=== PATIENT | female | born 1945 | race Two or more races ===

== ENCOUNTER 2023-10-15 09:06 | Outpatient (REF) | payer OTHER, SELFPAY ==
--- NOTE | ~2023-10-15 | XR_ITS ---
EXAMINATION: XR SHOULDER, LEFT CLINICAL INFORMATION: Pain in left shoulder. COMPARISON: None available. TECHNIQUE: Two views of the left shoulder. FINDINGS: The bones are diffusely demineralized. Moderate degenerative changes in the acromioclavicular joint. Glenohumeral joint is difficult to evaluate due to positioning and overlying bony structures. No abnormal soft tissue calcification is appreciated adjacent to the humeral head on images provided. XR/XR shoulder LT min 2V IMPRESSION: 1. Moderate degenerative changes in the acromioclavicular joint. 2. Glenohumeral joint is difficult to evaluate due to positioning and overlying bony structures. 3. Additional imaging with CT scan or MRI should be considered for better visualization as these modalities are much more sensitive for detection of fracture or other underlying pathology..
== END 2023-10-15 09:07 | disposition home or self-care (01) ==
LOC: HO.HOSX 09:06
PROVIDERS: Visit Provider Orthopaedic Surgery
DX: M25.512 Pain in left shoulder (principal)
CPT/HCPCS: 73030; 99202

== ENCOUNTER 2023-10-15 10:01 | Outpatient (AMB) | payer OTHER, SELFPAY ==
--- NOTE | 2023-10-15 10:07 | A.OFFVIS_ITS ---
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 Patient expresses she noticed a large bump on the posterior aspect of her left shoulder several months ago. She states that the bump has increased in size.. She has pain that radiates to her neck and is unable to lift her left arm above her head. She has tried physical therapy exe rcises which aggravated her pain. She has also tried Tylenol and anti- inflammatory medicines which gave her minimal relief. Allergies Penicillins Allergy (Intermediate, Verified 10/15/23 10:10) Rash egg Adverse Reaction (Mild, Verified 10/15/23 10:11) Stomach Upset PFSH Surgical History (Updated 10/15/23 @ 10:18 by Khushi Giron) History of section Social History (Updated 10/15/23 @ 10:14 by Khushi Giron) Alcohol intake: never Patient Tobacco Use Status: Never used Tobacco Current occupational status: retired Current occupation: left hand dominant Physical Exam Vital Signs: BMI result Body Mass Index 20.1 Const Other: Well-nourished well-developed very friendly female awake alert and oriented x3 in no acute distress Extrem Other: Left shoulder examination shows decreased active and passive range of motion when compared to her right shoulder, tenderness and swelling over her scapular spine, no crepitus with range of motion, 4/5 strength with supraspinatus testing Results Reviewed Results Reviewed: X-rays of the patient's left shoulder show severe acromioclavicular joint narrowing, a type 2 acromion, no acute bony abnormalities Assessment & Plan Assessment & Plan (1) Left shoulder pain: Code(s): M25.512 - Pain in left shoulder Category: Medical Plan Ms. Nelson Rubi presents with left shoulder pain and weakness as well as a possible soft tissue mass along the superior aspect of her scapular spine of unclear etiology. Thus, I will send her for an MRI with IV contrast of her left shoulder to evaluate her for a possible soft tissue mass as well as possible rotator cuff tearing. I will see the patient back once the MRI is completed to discuss the findings and treatment options. She will continue with her range of motion exercises in the meantime. Feel free to call me at any time should questions regarding her orthopedic management arise. Thank you very much for asking me to see this very friendly patient. I spent 20 minutes in reviewing the patient's records and imaging studies, seeing the patient and documenting in the medical record. Orders: Orders MR shoulder LT w con 10/15/23 M25.512 - Pain in left shoulder XR shoulder LT min 2V 10/15/23 M25.512 - Pain in left shoulder Coding Level of Care Code New Pt Level 3 (54716) Diagnoses Left shoulder pain M25.512
[2023-10-15 10:09] VITALS: BMI 20.1
== END 2023-10-15 10:25 | disposition home or self-care (01) ==
PROVIDERS: Visit Provider Orthopaedic Surgery
DX: M25.512 Pain in left shoulder (principal)
CPT/HCPCS: 99203

== ENCOUNTER 2023-12-02 08:08 | Outpatient (REF) | payer OTHER, SELFPAY ==
--- NOTE | ~2023-12-02 | US_ITS ---
EXAMINATION: US ABDOMEN LIMITED CLINICAL INFORMATION: Elevated liver enzymes. COMPARISON: None available. TECHNIQUE: Real-time imaging of the right upper quadrant abdominal viscera. Limited visualization due to bowel gas. FINDINGS: PANCREAS: A 1.7 x 1.2 x 1.3 cm cyst in the region of the pancreatic neck. Limited visualization. LIVER: Slightly lobulated hepatic contour with coarse hepatic echotexture suggestive of hepatocellular disease including possible cirrhosis. GALLBLADDER: A nonmobile echogenic focus within the gallbladder is characteristic of a polyp. No gallbladder wall thickening. Tiny echogenic foci within the gallbladder wall may possibly represent ringdown artifact suggestive of adenomyomatosis. COMMON BILE DUCT: Normal in caliber measuring 0.5 cm in diameter. RIGHT KIDNEY: No hydronephrosis. No renal calculi. Limited visualization. The kidney measures 8.9 cm in maximum dimension. FREE FLUID: None. US/US abdomen limited IMPRESSION: 1. A 1.7 cm cyst in the region of the pancreatic neck. MRI should be considered for further evaluation. 2. Slightly lobulated hepatic contour with coarse hepatic echotexture suggestive of hepatocellular disease including possible cirrhosis. 3. A nonmobile echogenic focus within the gallbladder is characteristic of a polyp. No gallbladder wall thickening. Tiny echogenic foci within the gallbladder wall may possibly represent ringdown artifact suggestive of adenomyomatosis.
== END 2023-12-02 08:09 | disposition home or self-care (01) ==
LOC: HO.US 08:08
PROVIDERS: PCP Student in an Organized Health Care Education/Training Program; Visit Provider Student in an Organized Health Care Education/Training Program
DX: R79.89 Other specified abnormal findings of blood chemistry (principal)
CPT/HCPCS: 76705

== ENCOUNTER 2023-12-10 09:34 | Outpatient (REF) | payer OTHER, SELFPAY ==
[2023-12-10 14:47] LABS: Alanine Aminotransferase 71 U/L (0-31); Albumin Level 3.7 g/dL (3.5-5.0); Alkaline Phosphatase 225 U/L (39-117); Anion Gap 11 (12-20); Aspartate Amino Transferase 95 U/L (5-31); Bilirubin Direct 0.2 mg/dL (0.0-0.5); Bilirubin Total 0.6 mg/dL (0.0-1.0); Blood Urea Nitrogen 16 mg/dL (9-16); Calcium 9.1 mg/dL (8.4-10.2); Carbon Dioxide 28 mmol/L (22-29); Chloride 107 mmol/L (96-108); Cholesterol 166 mg/dL (<200); Estimated Glomerular Filt Rate > 60; Glucose Random 198 mg/dL (60-115); HDL Cholesterol 46 mg/dL (>40); LDL Cholesterol Calculated 99 mg/dL (<100); Potassium 4.8 mmol/L (3.3-5.1); Sodium 141 mmol/L (135-145); Total Protein 7.7 g/dL (6.5-8.0); Triglycerides 109 mg/dL (<150)
[2023-12-10 14:54] LABS: TSH reflex Free T4 0.98 uIU/mL (0.32-4.0)
[2023-12-14 07:18] LABS: Alk.Phos Iso. Macrohepatic 22 % (<=0); Alk.Phos Isoenzymes Bone 23 % (28-66); Alk.Phos Isoenzymes Intest 10 % (1-24); Alk.Phos Isoenzymes Liver 45 % (25-69); Alk.Phos Isoenzymes Placental 0 % (<=0); Alk.Phos Isoenzymes Total 220 U/L (37-153)
== END 2023-12-10 09:35 | disposition home or self-care (01) ==
LOC: HO.CHCLDS 09:34
PROVIDERS: Visit Provider Student in an Organized Health Care Education/Training Program
DX: E11.9 Type 2 diabetes mellitus without complications (principal); E03.9 Hypothyroidism, unspecified; R79.89 Other specified abnormal findings of blood chemistry
CPT/HCPCS: 36415; 80048; 80061; 80076; 84080; 84443

== ENCOUNTER 2024-01-19 09:29 | Outpatient (REF) | payer OTHER, SELFPAY ==
--- NOTE | ~2024-01-19 | MR_ITS ---
EXAMINATION: MR SHOULDER WITHOUT AND WITH CONTRAST, LEFT CLINICAL INFORMATION: Left shoulder pain. Painful lump over the scapula. Evaluate for tear. COMPARISON: None available. TECHNIQUE: MRI of the shoulder was performed before and after the intravenous administration of 5.5 mL Gadavist on a high-field scanner. FINDINGS: ROTATOR CUFF: An insertional tear of the supraspinatus tendon measures 1.6 cm AP and is full-thickness at the anterior margin with a thin band of intact bursal surface fibers posteriorly. The torn bursal surface fibers are retracted medially up to 1 cm. There is delamination and undersurface retraction of fibers by up to 2 cm to the level of the humeral head apex. The infraspinatus and subscapularis tendons are intact. Mild grade 1 fatty replacement is present throughout the rotator cuff and deltoid musculature. BICEPS: Normal. CORACOACROMIAL ARCH: The undersurface of the acromion is hooked with anterolateral subacromial spurs. Mild acromioclavicular osteoarthritis. Small volume of fluid is present in the subacromial subdeltoid bursa. LABRUM/CAPSULE: A subtle degenerative tear is suspected at the glenoid labrum posteriorly between the 10 o'clock position and 6 o'clock position. Joint capsule is intact at the axillary pouch with normal thickness and signal intensity. GLENOHUMERAL JOINT/MARROW: There is [id number] non-uniform chondral thinning at the glenoid anterosuperiorly with small marginal osteophytes. Mild subchondral edema. Mild chondral thinning is present at the humeral head superiorly. No fracture or malalignment. No joint effusion. OTHER BONES: Remainder of the scapula is normal in signal intensity and morphology. No osseous lesions. The imaged ribs are intact without appreciable osseous lesions. SUBCUTANEOUS SOFT TISSUES: No consolidative lesions or abnormal enhancement is appreciated in the area of palpable abnormality at the vertebral margin of the scapula. The markers do correspond to the region of the scapular spine, though no suspicious lesions are identified in this region. A nonencapsulated lipoma is on the differential. No elastofibroma is identified on these images MR/MR shoulder LT wo/w con IMPRESSION: 1. A 1.6 cm (AP) full-thickness insertional tear of the supraspinatus tendon with undersurface retraction. 2. Hooked acromial undersurface with anterolateral subacromial spurs. 3. Mild acromioclavicular and glenohumeral osteoarthritis. 4. No suspicious lesions are identified in the area of palpable abnormality at the vertebral margin of the scapula. Electronically signed by: Terence Leigh MD 01/20/2024 11:45 AM EDT
[2024-01-19] MEDS: gadobutroL 7.5 ML VIAL IVPUSH (10:42)
== END 2024-01-19 09:30 | disposition home or self-care (01) ==
LOC: HO.MRI 09:29
PROVIDERS: PCP Student in an Organized Health Care Education/Training Program; Visit Provider Orthopaedic Surgery
DX: M25.512 Pain in left shoulder (principal)
CPT/HCPCS: 73223; A9585